=== PATIENT | female | born 1995 | race Caucasian/White ===

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

== ENCOUNTER 2017-11-29 15:47 | Emergency (ER) | payer OTHER ==
[2017-11-29 15:59] VITALS: RESP 18
[2017-11-29 16:38] LABS: Basophils # (A) 0.1 k/uL (0-0.2); Basophils % (A) 1 %; Eosinophils # (A) 0.1 k/uL (0-0.7); Eosinophils % (A) 1 %; HCT 45.3 % (34.0-46.0); HGB 15.1 gm/dL (11.4-16.0); Lymphocytes # (A) 3.1 k/uL (1.0-4.8); Lymphocytes % (A) 23 %; MCHC 33.2 g/dL (31.0-37.0); MCV 87.2 fL (80.0-100.0); Mean Platelet Volume 6.4; Monocytes # (A) 0.6 k/uL (0-1.0); Monocytes % (A) 4 %; Neutrophils # (A) 9.5 k/uL (1.3-7.7); Neutrophils % (A) 70 %; Platelet Count 336 k/uL (150-450); RDW 12.9 % (11.5-15.5); WBC 13.6 k/uL (4.0-11.0)
[2017-11-29 16:41] LABS: Appearance,Urine Cloudy (Clear); Bacteria,Urine Rare /hpf; Bilirubin,Urine Negative (Negative); Blood,Urine Negative (Negative); Color,Urine Yellow; Glucose,Urine (UA) Negative (Negative); Ketones,Urine Negative (Negative); Leukocyte Esterase,Urine Negative (Negative); Mucus,Urine Few /hpf; Nitrite,Urine Negative (Negative); PH, Urine 7.5 (5.0-8.0); Protein,Urine Trace (Negative); RBC,Urine 1 /hpf (0-5); Specific Gravity,Urine 1.018 (1.001-1.035); Squamous Epithelial Cell,Urine 17 /hpf (0-4); WBC,Urine 4 /hpf (0-5)
--- NOTE | 2017-11-29 16:59 | ED ---
Abdominal Pain HPI - General Chief Complaint: Abdominal Pain Stated Complaint: positive preg test, cramping Time Seen by Provider: 11/29/17 16:16 Source: patient, RN notes reviewed Mode of arrival: ambulatory Limitations: no limitations - History of Present Illness Initial Comments: This a 22-year-old female presents emergency Department chief complaint of lower abdominal pain. Patient states that she feels that she's having cramping. Patient received that she is . She is A0 has not contacted a [facility] at this time. She denies any vaginal bleeding or vaginal discharge. Patient has no acute urinary frequency, dysuria no notable hematuria. Patient states she's had some nausea no vomiting no diarrhea no constipation. Patient does not take any current medications. - Related Data Home Medications Medication Instructions Recorded Confirmed Ibuprofen [Motrin] 600 mg PO Q6HR PRN 02/12/17 02/12/17 Allergies Allergy/AdvReac Type Severity Reaction Status Date / Time No Known Allergies Allergy Verified 11/29/17 15:58 Review of Systems ROS Statement: Those systems with pertinent positive or pertinent negative responses have been documented in the HPI. ROS Other: All systems not noted in ROS Statement are negative. Past Medical History Past Medical History: Asthma History of Any Multi-Drug Resistant Organisms: None Reported Past Surgical History: No Surgical Hx Reported Additional Past Surgical History / Comment(s): oral surgery Past Psychological History: No Psychological Hx Reported Smoking Status: Current every day smoker Past Alcohol Use History: None Reported Past Drug Use History: None Reported General Exam Limitations: no limitations General appearance: alert, in no apparent distress Head exam: Present: atraumatic, normocephalic, normal inspection Eye exam: Present: normal appearance, PERRL, EOMI. Absent: scleral icterus, conjunctival injection, periorbital swelling Respiratory exam: Present: normal lung sounds bilaterally. Absent: respiratory distress, wheezes, rales, rhonchi, stridor Cardiovascular Exam: Present: regular rate, normal rhythm, normal heart sounds. Absent: systolic murmur, diastolic murmur, rubs, gallop, clicks GI/Abdominal exam: Present: soft, normal bowel sounds. Absent: distended, tenderness, guarding, rebound, rigid Back exam: Absent: CVA tenderness (R), CVA tenderness (L) Skin exam: Present: warm, dry, intact, normal color. Absent: rash Course Vital Signs 11/29/17 15:56 Temperature 98.8 F Pulse Rate 113 H Respiratory 18 Rate Blood Pressure 134/81 O2 Sat by Pulse 96 Oximetry Medical Decision Making - Medical Decision Making 22-year-old female presented for lower abdominal pain cramping and positive test at home. She is negative hCG at this time. Patient ultrasound showed no acute, grade factors. Patient abdomen is soft and will be discharged at this time. - Lab Data Result diagrams: 11/29/17 16:22 11/29/17 16:22 Lab Results 11/29/17 11/29/17 11/29/17 Range/Units 16:22 16:22 16:22 WBC 13.6 H (4.0-11.0) k/uL RBC 5.20 (3.80-5.40) m/uL Hgb 15.1 (11.4-16.0) gm/dL Hct 45.3 (34.0-46.0) % MCV 87.2 (80.0-100.0) fL MCH 29.0 (25.0-35.0) pg MCHC 33.2 (31.0-37.0) g/dL RDW 12.9 (11.5-15.5) % Plt Count 336 (150-450) k/uL Neutrophils % 70 % Lymphocytes % 23 % Monocytes % 4 % Eosinophils % 1 % Basophils % 1 % Neutrophils # 9.5 H (1.3-7.7) k/uL Lymphocytes # 3.1 (1.0-4.8) k/uL Monocytes # 0.6 (0-1.0) k/uL Eosinophils # 0.1 (0-0.7) k/uL Basophils # 0.1 (0-0.2) k/uL Sodium 141 (137-145) mmol/L Potassium 4.0 (3.5-5.1) mmol/L Chloride 109 H (98-107) mmol/L Carbon Dioxide 21 L (22-30) mmol/L Anion Gap 11 mmol/L BUN 9 (7-17) mg/dL Creatinine 0.56 (0.52-1.04) mg/dL Est GFR (CKD-EPI)AfAm >90 (>60 ml/min/1.73 sqM) Est GFR (CKD-EPI)NonAf >90 (>60 ml/min/1.73 sqM) Glucose 95 (74-99) mg/dL Calcium 9.7 (8.4-10.2) mg/dL Total Bilirubin 0.4 (0.2-1.3) mg/dL AST 18 (14-36) U/L ALT 23 (9-52) U/L Alkaline Phosphatase 77 (38-126) U/L Total Protein 7.6 (6.3-8.2) g/dL Albumin 4.4 (3.5-5.0) g/dL HCG, Quant <2.4 mIU/mL Urine Color Urine Appearance (Clear) Urine pH (5.0-8.0) Ur Specific [place] (1.001-1.035) Urine Protein (Negative) Urine Glucose (UA) (Negative) Urine Ketones (Negative) Urine Blood (Negative) Urine Nitrite (Negative) Urine Bilirubin (Negative) Urine Urobilinogen (<2.0) mg/dL Ur Leukocyte Esterase (Negative) Urine RBC (0-5) /hpf Urine WBC (0-5) /hpf Ur Squamous Epith Cells (0-4) /hpf Urine Bacteria (None) /hpf Urine Mucus (None) /hpf Blood Type B Positive Blood Type Recheck [facility] 11/29/17 Range/Units 16:22 WBC (4.0-11.0) k/uL RBC (3.80-5.40) m/uL Hgb (11.4-16.0) gm/dL Hct (34.0-46.0) % MCV (80.0-100.0) fL MCH (25.0-35.0) pg MCHC (31.0-37.0) g/dL RDW (11.5-15.5) % Plt Count (150-450) k/uL Neutrophils % % Lymphocytes % % Monocytes % % Eosinophils % % Basophils % % Neutrophils # (1.3-7.7) k/uL Lymphocytes # (1.0-4.8) k/uL Monocytes # (0-1.0) k/uL Eosinophils # (0-0.7) k/uL Basophils # (0-0.2) k/uL Sodium (137-145) mmol/L Potassium (3.5-5.1) mmol/L Chloride (98-107) mmol/L Carbon Dioxide (22-30) mmol/L Anion Gap mmol/L BUN (7-17) mg/dL Creatinine (0.52-1.04) mg/dL Est GFR (CKD-EPI)AfAm (>60 ml/min/1.73 sqM) Est GFR (CKD-EPI)NonAf (>60 ml/min/1.73 sqM) Glucose (74-99) mg/dL Calcium (8.4-10.2) mg/dL Total Bilirubin (0.2-1.3) mg/dL AST (14-36) U/L ALT (9-52) U/L Alkaline Phosphatase (38-126) U/L Total Protein (6.3-8.2) g/dL Albumin (3.5-5.0) g/dL HCG, Quant mIU/mL Urine Color Yellow Urine Appearance Cloudy H (Clear) Urine pH 7.5 (5.0-8.0) Ur Specific [place] 1.018 (1.001-1.035) Urine Protein Trace H (Negative) Urine Glucose (UA) Negative (Negative) Urine Ketones Negative (Negative) Urine Blood Negative (Negative) Urine Nitrite Negative (Negative) Urine Bilirubin Negative (Negative) Urine Urobilinogen 2.0 (<2.0) mg/dL Ur Leukocyte Esterase Negative (Negative) Urine RBC 1 (0-5) /hpf Urine WBC 4 (0-5) /hpf Ur Squamous Epith Cells 17 H (0-4) /hpf Urine Bacteria Rare H (None) /hpf Urine Mucus Few H (None) /hpf Blood Type Blood Type Recheck Disposition Clinical Impression: Abdominal pain Disposition: HOME SELF-CARE Condition: Stable Instructions: Abdominal Pain (ED) Additional Instructions: Please return to the Emergency Department if symptoms worsen or any other concerns. Is patient prescribed a controlled substance at d/c from ED?: No Referrals: None,Stated [Primary Care Provider] - 1-2 days Time of Disposition: 17:42
[2017-11-29 17:02] LABS: ALT 23 U/L (9-52); AST 18 U/L (14-36); Albumin 4.4 g/dL (3.5-5.0); Alkaline Phosphatase 77 U/L (38-126); Anion Gap 11 mmol/L; Blood Urea Nitrogen 9 mg/dL (7-17); Calcium 9.7 mg/dL (8.4-10.2); Carbon Dioxide 21 mmol/L (22-30); Chloride 109 mmol/L (98-107); Glucose 95 mg/dL (74-99); Sodium 141 mmol/L (137-145); Total Bilirubin 0.4 mg/dL (0.2-1.3); Total Protein 7.6 g/dL (6.3-8.2)
--- NOTE | 2017-11-29 17:07 | US ---
EXAMINATION TYPE: Transabdominal DATE OF EXAM: 06/06/17 COMPARISON: NONE CLINICAL HISTORY: Pain. + home preg test, intermittent cramping x 2 days, 1 EXAM PERFORMED: Transvaginal (TV) and Transabdominal (TA) EXAM MEASUREMENTS: GESTATIONAL AGE / DATING Physician Established: Not established yet Dates by LMP: (3 weeks/4 days) EDC: 08/11/2018 Dates by First Scan: This is 1st scan Dates by Current Scan for: No IUP seen at this time MATERNAL ANATOMY Uterus: 6.7 x 2.9 x 3.8cm Right Ovary: 3.4 x 2.3 x 2.8cm Left Ovary: 2.6 x 1.5 x 2.1cm Post CDS / Adnexa: small amount of free fluid seen in posterior cul de sac Presence of free fluid: yes Presence of corpus luteal cyst: not seen Presence of subchorionic bleed: no GESTATION / SURVEY IUP: No IUP seen at this time Date of LMP: 11/04/2017 Beta HcG (if available): Not available at time of exam. IMPRESSION: The uterus is empty. No adnexal mass. Tiny amount of free fluid in the cul-de-sac.
[2017-11-29 17:17] LABS: HCG,Quantitative Serum <2.4 mIU/mL
[2017-11-29 17:50] VITALS: BP 120/82; PULSE 74; TEMP 98
== END 2017-11-29 17:50 | disposition home or self-care (01) ==
LOC: EC 15:47
DX: R10.30 Lower abdominal pain, unspecified (principal); F17.200 Nicotine dependence, unspecified, uncomplicated
CPT/HCPCS: 36415; 76801; 76817; 80053; 81001; 84702; 85025; 86900; 86901; 99284

== ENCOUNTER 2018-03-21 22:39 | Emergency (ER) | payer OTHER ==
[2018-03-21 23:32] VITALS: RESP 16
[2018-03-21] MEDS ORDERED: SODIUM CHLORIDE 0.9% 1,000 ML IV STA (23:39)
[2018-03-21] MEDS ORDERED: ACETAMINOPHEN TAB 500 MG TAB PO STA (23:39)
[2018-03-21 23:50] LABS: Appearance,Urine Clear (Clear); Basophils # (A) 0.1 k/uL (0-0.2); Basophils % (A) 1 %; Bilirubin,Urine Negative (Negative); Blood,Urine Negative (Negative); Color,Urine Yellow; Eosinophils # (A) 0.2 k/uL (0-0.7); Eosinophils % (A) 2 %; Glucose,Urine (UA) Negative (Negative); HCT 40.5 % (34.0-46.0); HGB 13.3 gm/dL (11.4-16.0); Ketones,Urine Negative (Negative); Leukocyte Esterase,Urine Negative (Negative); Lymphocytes # (A) 3.2 k/uL (1.0-4.8); Lymphocytes % (A) 21 %; MCH 28.3 pg (25.0-35.0); MCHC 32.9 g/dL (31.0-37.0); MCV 85.8 fL (80.0-100.0); Mean Platelet Volume 6.3; Monocytes # (A) 0.5 k/uL (0-1.0); Monocytes % (A) 4 %; Neutrophils # (A) 10.7 k/uL (1.3-7.7); Neutrophils % (A) 72 %; Nitrite,Urine Negative (Negative); Platelet Count 336 k/uL (150-450); Protein,Urine Negative (Negative); RBC 4.71 m/uL (3.80-5.40); RDW 12.5 % (11.5-15.5); Specific Gravity,Urine 1.015 (1.001-1.035); WBC 14.8 k/uL (4.0-11.0)
[2018-03-21 23:58] LABS: ALT 40 U/L (9-52); AST 24 U/L (14-36); Albumin 4.5 g/dL (3.5-5.0); Alkaline Phosphatase 67 U/L (38-126); Amylase 53 U/L (30-110); Anion Gap 10 mmol/L; Blood Urea Nitrogen 8 mg/dL (7-17); Calcium 9.5 mg/dL (8.4-10.2); Carbon Dioxide 20 mmol/L (22-30); Chloride 107 mmol/L (98-107); Glucose 94 mg/dL (74-99); Lipase 55 U/L (23-300); Potassium 3.8 mmol/L (3.5-5.1); Sodium 137 mmol/L (137-145); Total Bilirubin 0.5 mg/dL (0.2-1.3); Total Protein 7.6 g/dL (6.3-8.2)
--- NOTE | 2018-03-22 00:41 | US ---
EXAMINATION TYPE: Transabdominal DATE OF EXAM: 06/06/17 COMPARISON: NONE CLINICAL HISTORY: Pain. Pain EXAM PERFORMED: Transvaginal (TV) and Transabdominal (TA) EXAM MEASUREMENTS: GESTATIONAL AGE / DATING Physician Established: Not yet established Dates by LMP: (6 weeks/6 days) EDC: 11/09/2018 Dates by First Scan: No previous this is first scan Dates by Current Scan for: (6 weeks/3 days) EDC: 11/12/2018 MATERNAL ANATOMY Uterus: 8.3 x 5.0 x 5.1 cm Right Ovary: 2.4 x 2.0 x 1.9 cm Left Ovary: Obscured by bowel gas. Post CDS / Adnexa: wnl Presence of free fluid: no Presence of corpus luteal cyst: no Presence of subchorionic bleed: no GESTATION / SURVEY CRL: 0.6 cm (6 weeks/3 days) Yolk Sac (normal less than 6mm): 2mm Heart Rate: 150 bpm Rhythm: Normal IUP: Viable IUP Beta HcG (if available): Not available at this time Viable IUP 6w3d EDD11/12/2018 HR 150 BPM IMPRESSION: The ultrasound gestational age is 6 weeks and 3 days. No complicating process seen. Single living intrauterine fetus.
--- NOTE | 2018-03-22 01:38 | ED ---
Abdominal Pain HPI - General Chief Complaint: Abdominal Pain Stated Complaint: Cramping, discharge Time Seen by Provider: 03/21/18 23:06 Source: patient Mode of arrival: ambulatory Limitations: no limitations - History of Present Illness Initial Comments: 22-year-old female patient presents to the emergency department today for evaluation of suprapubic abdominal cramping, bilateral rib pain, and vaginal discharge. Patient states that she is she is not sure how many weeks. States her last period was January 14. She is . Patient states that over the last 3-4 days she has been having intermittent suprapubic cramping and intermittent sharp pains to her bilateral rib/upper abdomen region. She states she has been quite nauseated, did have an episode of vomiting 2 days ago. She denies any fevers or chills. Denies any hematuria, dysuria, urinary frequency, urinary urgency. States that she has established care with Dr. Chino and has her first appointment on the of this month. States that this morning she did have a small amount of brown vaginal discharge, this has resolved. She denies any increased bleeding. Denies any concern for sexually transmitted infections. Patient denies any recent rash, shortness breath, chest pain, diarrhea, constipation, back pain, numbness, tingling, dizziness, weakness, headache, visual changes, or any other complaints. - Related Data Previous Rx's Medication Instructions Recorded Pyridoxine [Vitamin B-6] 25 mg PO HS #15 tablet 03/22/18 Allergies Allergy/AdvReac Type Severity Reaction Status Date / Time No Known Allergies Allergy Verified 03/21/18 23:07 Review of Systems ROS Statement: Those systems with pertinent positive or pertinent negative responses have been documented in the HPI. ROS Other: All systems not noted in ROS Statement are negative. Past Medical History Past Medical History: Asthma History of Any Multi-Drug Resistant Organisms: None Reported Past Surgical History: No Surgical Hx Reported Additional Past Surgical History / Comment(s): oral surgery Past Psychological History: No Psychological Hx Reported Smoking Status: Current every day smoker Past Alcohol Use History: None Reported Past Drug Use History: None Reported General Exam Limitations: no limitations General appearance: alert, in no apparent distress, other (This is a well- developed, well-nourished adult female patient in no acute distress. Vital signs upon presentation are temperature 98.2F, pulse 88, respirations 20, blood pressure 122/74, pulse ox 98% on room air.) Eye exam: Present: normal appearance, PERRL, EOMI. Absent: scleral icterus, conjunctival injection, periorbital swelling ENT exam: Present: normal exam, normal oropharynx, mucous membranes moist Respiratory exam: Present: normal lung sounds bilaterally. Absent: respiratory distress, wheezes, rales, rhonchi, stridor Cardiovascular Exam: Present: regular rate, normal rhythm, normal heart sounds. Absent: systolic murmur, diastolic murmur, rubs, gallop, clicks GI/Abdominal exam: Present: soft, normal bowel sounds. Absent: distended, tenderness, guarding, rebound, rigid Back exam: Present: normal inspection. Absent: CVA tenderness (R), CVA tenderness (L) Neurological exam: Present: alert, oriented X3, CN II-XII intact Psychiatric exam: Present: normal affect, normal mood Skin exam: Present: warm, dry, intact, normal color. Absent: rash Course Vital Signs 03/21/18 03/21/18 03/22/18 22:59 23:31 01:56 Temperature 98.2 F 98.4 F 97.7 F Pulse Rate 88 89 82 Respiratory 20 16 16 Rate Blood Pressure 122/74 120/71 125/66 O2 Sat by Pulse 98 100 100 Oximetry Medical Decision Making - Medical Decision Making 22-year-old female patient presents to the emergency department today for evaluation of suprapubic cramping and bilateral rib pain. Patient is 6 weeks confirmed by ultrasound, which shows a single intrauterine . Patient did report a small amount of brown vaginal discharge this morning. Denies any concern for STDs. Labs reviewed and did reveal an hCG of 30,000. Patient is B positive for ABO/Rh. Urinalysis negative for infection. Patient was given IV fluids here in the department. She does report nausea was given a prescription for vitamin B6. She was discharged home at this time to follow-up with [facility] for recheck as soon as possible. Return parameters discussed in detail. She verbalizes understanding and agrees with this plan. - Lab Data Result diagrams: 03/21/18 23:39 03/21/18 23:39 Lab Results 03/21/18 03/21/18 03/21/18 Range/Units 23:39 23:39 23:39 WBC 14.8 H (4.0-11.0) k/uL RBC 4.71 (3.80-5.40) m/uL Hgb 13.3 (11.4-16.0) gm/dL Hct 40.5 (34.0-46.0) % MCV 85.8 (80.0-100.0) fL MCH 28.3 (25.0-35.0) pg MCHC 32.9 (31.0-37.0) g/dL RDW 12.5 (11.5-15.5) % Plt Count 336 (150-450) k/uL Neutrophils % 72 % Lymphocytes % 21 % Monocytes % 4 % Eosinophils % 2 % Basophils % 1 % Neutrophils # 10.7 H (1.3-7.7) k/uL Lymphocytes # 3.2 (1.0-4.8) k/uL Monocytes # 0.5 (0-1.0) k/uL Eosinophils # 0.2 (0-0.7) k/uL Basophils # 0.1 (0-0.2) k/uL Sodium 137 (137-145) mmol/L Potassium 3.8 (3.5-5.1) mmol/L Chloride 107 (98-107) mmol/L Carbon Dioxide 20 L (22-30) mmol/L Anion Gap 10 mmol/L BUN 8 (7-17) mg/dL Creatinine 0.49 L (0.52-1.04) mg/dL Est GFR (CKD-EPI)AfAm >90 (>60 ml/min/1.73 sqM) Est GFR (CKD-EPI)NonAf >90 (>60 ml/min/1.73 sqM) Glucose 94 (74-99) mg/dL Calcium 9.5 (8.4-10.2) mg/dL Total Bilirubin 0.5 (0.2-1.3) mg/dL AST 24 (14-36) U/L ALT 40 (9-52) U/L Alkaline Phosphatase 67 (38-126) U/L Total Protein 7.6 (6.3-8.2) g/dL Albumin 4.5 (3.5-5.0) g/dL Amylase 53 (30-110) U/L Lipase 55 (23-300) U/L HCG, Quant 14133.0 mIU/mL Urine Color Urine Appearance (Clear) Urine pH (5.0-8.0) Ur Specific [place] (1.001-1.035) Urine Protein (Negative) Urine Glucose (UA) (Negative) Urine Ketones (Negative) Urine Blood (Negative) Urine Nitrite (Negative) Urine Bilirubin (Negative) Urine Urobilinogen (<2.0) mg/dL Ur Leukocyte Esterase (Negative) Blood Type B Positive Blood Type Recheck No 03/21/18 Range/Units 23:39 WBC (4.0-11.0) k/uL RBC (3.80-5.40) m/uL Hgb (11.4-16.0) gm/dL Hct (34.0-46.0) % MCV (80.0-100.0) fL MCH (25.0-35.0) pg MCHC (31.0-37.0) g/dL RDW (11.5-15.5) % Plt Count (150-450) k/uL Neutrophils % % Lymphocytes % % Monocytes % % Eosinophils % % Basophils % % Neutrophils # (1.3-7.7) k/uL Lymphocytes # (1.0-4.8) k/uL Monocytes # (0-1.0) k/uL Eosinophils # (0-0.7) k/uL Basophils # (0-0.2) k/uL Sodium (137-145) mmol/L Potassium (3.5-5.1) mmol/L Chloride (98-107) mmol/L Carbon Dioxide (22-30) mmol/L Anion Gap mmol/L BUN (7-17) mg/dL Creatinine (0.52-1.04) mg/dL Est GFR (CKD-EPI)AfAm (>60 ml/min/1.73 sqM) Est GFR (CKD-EPI)NonAf (>60 ml/min/1.73 sqM) Glucose (74-99) mg/dL Calcium (8.4-10.2) mg/dL Total Bilirubin (0.2-1.3) mg/dL AST (14-36) U/L ALT (9-52) U/L Alkaline Phosphatase (38-126) U/L Total Protein (6.3-8.2) g/dL Albumin (3.5-5.0) g/dL Amylase (30-110) U/L Lipase (23-300) U/L HCG, Quant mIU/mL Urine Color Yellow Urine Appearance Clear (Clear) Urine pH 6.0 (5.0-8.0) Ur Specific [place] 1.015 (1.001-1.035) Urine Protein Negative (Negative) Urine Glucose (UA) Negative (Negative) Urine Ketones Negative (Negative) Urine Blood Negative (Negative) Urine Nitrite Negative (Negative) Urine Bilirubin Negative (Negative) Urine Urobilinogen 4.0 (<2.0) mg/dL Ur Leukocyte Esterase Negative (Negative) Blood Type Blood Type Recheck - Radiology Data Radiology results: report reviewed Patient denies any recent rash, fever, chills, shortness breath, chest pain, abdominal pain, nausea, vomiting, diarrhea, constipation, back pain, numbness, tingling, dizziness, weakness, hematuria, dysuria, urinary urgency, urinary frequency, headache, visual changes, or any other complaints. Disposition Clinical Impression: Abdominal pain during Disposition: HOME SELF-CARE Condition: Good Instructions: Abdominal Pain in (ED) Additional Instructions: Increase fluids. Take tylenol for pain control. Try the vitamin B6 for nausea. Follow up with OBGYN for recheck as soon as possible. Return immediately for any new, worsening, or concerning symptoms. Prescriptions: Pyridoxine [Vitamin B-6] 25 mg PO HS #15 tablet Is patient prescribed a controlled substance at d/c from ED?: No Referrals: None,Stated [Primary Care Provider] - 1-2 days Time of Disposition: 01:38
[2018-03-22 01:57] VITALS: BP 125/66; PULSE 82; TEMP 97.7
== END 2018-03-22 01:56 | disposition home or self-care (01) ==
LOC: EC 22:39
DX: O99.89 Other specified diseases and conditions complicating pregnancy, childbirth and the puerperium (principal); R10.30 Lower abdominal pain, unspecified; R11.0 Nausea; N89.8 Other specified noninflammatory disorders of vagina; R07.81 Pleurodynia; O99.331 Smoking (tobacco) complicating pregnancy, first trimester; F17.200 Nicotine dependence, unspecified, uncomplicated; Z3A.01 Less than 8 weeks gestation of pregnancy
CPT/HCPCS: 36415; 76801; 76817; 80053; 81003; 82150; 83690; 84702; 85025; 86900; 86901; 96360; 99284

== ENCOUNTER 2018-04-16 18:34 | Emergency (ER) | payer OTHER ==
[2018-04-16 19:00] VITALS: BP 136/81; PULSE 110; RESP 18; TEMP 99.2
[2018-04-16 19:43] LABS: Basophils # (A) 0.1 k/uL (0-0.2); Basophils % (A) 0 %; Eosinophils # (A) 0.1 k/uL (0-0.7); Eosinophils % (A) 1 %; HCT 39.8 % (34.0-46.0); HGB 13.6 gm/dL (11.4-16.0); Lymphocytes # (A) 2.4 k/uL (1.0-4.8); Lymphocytes % (A) 15 %; MCH 28.9 pg (25.0-35.0); MCHC 34.2 g/dL (31.0-37.0); MCV 84.6 fL (80.0-100.0); Mean Platelet Volume 6.4; Monocytes # (A) 0.5 k/uL (0-1.0); Monocytes % (A) 3 %; Neutrophils # (A) 13.3 k/uL (1.3-7.7); Neutrophils % (A) 80 %; Platelet Count 330 k/uL (150-450); RBC 4.71 m/uL (3.80-5.40); RDW 12.4 % (11.5-15.5); WBC 16.6 k/uL (4.0-11.0)
[2018-04-16 19:52] LABS: ALT 38 U/L (9-52); AST 32 U/L (14-36); Albumin 4.5 g/dL (3.5-5.0); Alkaline Phosphatase 78 U/L (38-126); Amylase 48 U/L (30-110); Anion Gap 12 mmol/L; Blood Urea Nitrogen 5 mg/dL (7-17); Calcium 9.6 mg/dL (8.4-10.2); Carbon Dioxide 21 mmol/L (22-30); Chloride 106 mmol/L (98-107); Glucose 92 mg/dL (74-99); Lipase 83 U/L (23-300); Potassium 3.5 mmol/L (3.5-5.1); Sodium 139 mmol/L (137-145); Total Bilirubin 0.6 mg/dL (0.2-1.3); Total Protein 7.5 g/dL (6.3-8.2)
[2018-04-16 21:21] LABS: Appearance,Urine Cloudy (Clear); Bacteria,Urine Rare /hpf; Bilirubin,Urine Negative (Negative); Blood,Urine Negative (Negative); Color,Urine Yellow; Glucose,Urine (UA) Negative (Negative); Ketones,Urine 4+ (Negative); Leukocyte Esterase,Urine Trace (Negative); Mucus,Urine Many /hpf; Nitrite,Urine Negative (Negative); PH, Urine 6.5 (5.0-8.0); Protein,Urine Negative (Negative); RBC,Urine 1 /hpf (0-5); Specific Gravity,Urine 1.008 (1.001-1.035); Squamous Epithelial Cell,Urine 15 /hpf (0-4); WBC,Urine 6 /hpf (0-5)
--- NOTE | 2018-04-17 02:51 | ED ---
Abdominal Pain HPI - General Chief Complaint: Abdominal Pain Stated Complaint: 10wks preg, cramping Time Seen by Provider: 04/16/18 20:34 Source: patient Mode of arrival: ambulatory Limitations: no limitations - History of Present Illness Initial Comments: 22-year-old female patient came in with a reported complaint of abdominal cramping at 10 weeks of . When I went in to see the patient she did not want to be evaluated or wait any longer so she refused to proceed with history and physical exam. No information was obtained. - Related Data Home Medications Medication Instructions Recorded Confirmed Htj-[id number]-Ibvga Acid 1 cap PO HS 04/16/18 04/16/18 [-U Capsule (formulary)] Allergies Allergy/AdvReac Type Severity Reaction Status Date / Time No Known Allergies Allergy Verified 04/16/18 22:01 Review of Systems ROS Statement: Those systems with pertinent positive or pertinent negative responses have been documented in the HPI. ROS Other: All systems not noted in ROS Statement are negative. Past Medical History Past Medical History: Asthma History of Any Multi-Drug Resistant Organisms: None Reported Past Surgical History: No Surgical Hx Reported Additional Past Surgical History / Comment(s): oral surgery Past Psychological History: No Psychological Hx Reported Smoking Status: Current every day smoker Past Alcohol Use History: None Reported Past Drug Use History: None Reported General Exam Limitations: no limitations Course Vital Signs 04/16/18 18:58 Temperature 99.2 F Pulse Rate 110 H Respiratory 18 Rate Blood Pressure 136/81 O2 Sat by Pulse 98 Oximetry Medical Decision Making - Medical Decision Making 22-year-old female patient came in with reported complaint of abdominal cramping and . Upon my arrival to the room patient refused to be seen or evaluated. I was unable to perform history or physical exam. I was not able to discuss lab results with the patient. She did sign an AGAINST MEDICAL ADVICE form. She reports she will follow-up with her doctor tomorrow. - Lab Data Result diagrams: 04/16/18 19:15 04/16/18 19:15 Lab Results 04/16/18 04/16/18 04/16/18 Range/Units 19:15 19:15 20:54 WBC 16.6 H (4.0-11.0) k/uL RBC 4.71 (3.80-5.40) m/uL Hgb 13.6 (11.4-16.0) gm/dL Hct 39.8 (34.0-46.0) % MCV 84.6 (80.0-100.0) fL MCH 28.9 (25.0-35.0) pg MCHC 34.2 (31.0-37.0) g/dL RDW 12.4 (11.5-15.5) % Plt Count 330 (150-450) k/uL Neutrophils % 80 % Lymphocytes % 15 % Monocytes % 3 % Eosinophils % 1 % Basophils % 0 % Neutrophils # 13.3 H (1.3-7.7) k/uL Lymphocytes # 2.4 (1.0-4.8) k/uL Monocytes # 0.5 (0-1.0) k/uL Eosinophils # 0.1 (0-0.7) k/uL Basophils # 0.1 (0-0.2) k/uL Sodium 139 (137-145) mmol/L Potassium 3.5 (3.5-5.1) mmol/L Chloride 106 (98-107) mmol/L Carbon Dioxide 21 L (22-30) mmol/L Anion Gap 12 mmol/L BUN 5 L (7-17) mg/dL Creatinine 0.47 L (0.52-1.04) mg/dL Est GFR (CKD-EPI)AfAm >90 (>60 ml/min/1.73 sqM) Est GFR (CKD-EPI)NonAf >90 (>60 ml/min/1.73 sqM) Glucose 92 (74-99) mg/dL Calcium 9.6 (8.4-10.2) mg/dL Total Bilirubin 0.6 (0.2-1.3) mg/dL AST 32 (14-36) U/L ALT 38 (9-52) U/L Alkaline Phosphatase 78 (38-126) U/L Total Protein 7.5 (6.3-8.2) g/dL Albumin 4.5 (3.5-5.0) g/dL Amylase 48 (30-110) U/L Lipase 83 (23-300) U/L Urine Color Yellow Urine Appearance Cloudy H (Clear) Urine pH 6.5 (5.0-8.0) Ur Specific [place] 1.008 (1.001-1.035) Urine Protein Negative (Negative) Urine Glucose (UA) Negative (Negative) Urine Ketones 4+ H (Negative) Urine Blood Negative (Negative) Urine Nitrite Negative (Negative) Urine Bilirubin Negative (Negative) Urine Urobilinogen 6.0 (<2.0) mg/dL Ur Leukocyte Esterase Trace H (Negative) Urine RBC 1 (0-5) /hpf Urine WBC 6 H (0-5) /hpf Ur Squamous Epith Cells 15 H (0-4) /hpf Urine Bacteria Rare H (None) /hpf Urine Mucus Many H (None) /hpf Disposition Clinical Impression: Abdominal cramping Disposition: Left Against Medical Advice Condition: Undetermined Referrals: None,Stated [Primary Care Provider] - 1-2 days
== END 2018-04-16 22:11 | disposition left against medical advice (07) ==
LOC: EC 18:34
DX: O99.89 Other specified diseases and conditions complicating pregnancy, childbirth and the puerperium (principal); R10.32 Left lower quadrant pain; O99.331 Smoking (tobacco) complicating pregnancy, first trimester; F17.200 Nicotine dependence, unspecified, uncomplicated; Z53.29 Procedure and treatment not carried out because of patient's decision for other reasons; Z3A.10 10 weeks gestation of pregnancy
CPT/HCPCS: 36415; 80053; 81001; 82150; 83690; 85025; 99284

== ENCOUNTER 2018-10-16 23:25 | Emergency (ER) | payer OTHER ==
[2018-10-16 23:38] VITALS: RESP 18
[2018-10-16] MEDS ORDERED: SODIUM CHLORIDE 0.9% 1,000 ML IV STA (23:51)
[2018-10-16] MEDS ORDERED: ACETAMINOPHEN TAB 500 MG TAB PO STA (23:56)
[2018-10-17 00:17] LABS: Anisocytosis Slight; Basophils # (A) 0.1 k/uL (0-0.2); Basophils % (A) 1 %; Eosinophils # (A) 0.3 k/uL (0-0.7); Eosinophils % (A) 2 %; HCT 37.9 % (34.0-46.0); Lymphocytes # (A) 4.3 k/uL (1.0-4.8); Lymphocytes % (A) 29 %; MCH 29.2 pg (25.0-35.0); MCHC 34.2 g/dL (31.0-37.0); MCV 85.5 fL (80.0-100.0); Monocytes # (A) 0.6 k/uL (0-1.0); Monocytes % (A) 4 %; Neutrophils # (A) 9.6 k/uL (1.3-7.7); Neutrophils % (A) 64 %; Platelet Count 327 k/uL (150-450); RBC 4.44 m/uL (3.80-5.40); RDW 16.1 % (11.5-15.5)
[2018-10-17 00:22] LABS: Appearance,Urine Clear (Clear); Bilirubin,Urine Negative (Negative); Blood,Urine Negative (Negative); Color,Urine Colorless; Glucose,Urine (UA) Negative (Negative); Ketones,Urine Negative (Negative); Leukocyte Esterase,Urine Negative (Negative); Nitrite,Urine Negative (Negative); Protein,Urine Negative (Negative); Specific Gravity,Urine 1.003 (1.001-1.035); Urobilinogen,Urine <2.0 mg/dL (<2.0)
[2018-10-17 00:38] LABS: ALT 12 U/L (9-52); AST 13 U/L (14-36); African American GFR (CKD) >90 (>60 ml/min/1.73 sqM); Alkaline Phosphatase 63 U/L (38-126); Amylase 46 U/L (30-110); Anion Gap 10 mmol/L; Blood Urea Nitrogen 8 mg/dL (7-17); Calcium 9.5 mg/dL (8.4-10.2); Carbon Dioxide 23 mmol/L (22-30); Chloride 105 mmol/L (98-107); Glucose 90 mg/dL (74-99); Potassium 3.7 mmol/L (3.5-5.1); Sodium 138 mmol/L (137-145); Total Bilirubin 0.2 mg/dL (0.2-1.3)
[2018-10-17 00:55] LABS: HCG,Quantitative Serum 8021.9 mIU/mL
--- NOTE | 2018-10-17 01:51 | ED ---
Abdominal Pain HPI - General Chief Complaint: Abdominal Pain Stated Complaint: Early /Cramping Time Seen by Provider: 10/16/18 23:43 Source: patient Mode of arrival: ambulatory Limitations: no limitations - History of Present Illness Initial Comments: 22-year-old female patient presents to the emergency department today for evaluation of suprapubic abdominal cramping. Patient states that she found out she is one week ago. States that she has had some abdominal cramping with this , was seen by her primary care physician and was told her hCG levels were rising too rapidly and if she experiencing any further abdominal pain to present for evaluation to the nearest emergency Department. Patient states that she had increase in abdominal pain today. Patient states the pain radiates along her lower abdomen into both hips and into her back. She denies any abnormal vaginal bleeding or discharge. Denies any hematuria, dysuria, urinary frequency, urinary urgency. Patient is with one elective . She denies any fever or chills. Patient denies any recent rash, shortness breath, chest pain, abdominal pain, nausea, vomiting, diarrhea, constipation, back pain, numbness, tingling, dizziness, weakness, headache, visual changes, or any other complaints. - Related Data Home Medications Medication Instructions Recorded Confirmed Pqn-Owtc-Krgws Acid 1 cap PO HS 04/16/18 04/16/18 [-U Capsule (formulary)] Allergies Allergy/AdvReac Type Severity Reaction Status Date / Time No Known Allergies Allergy Verified 10/16/18 23:38 Review of Systems ROS Statement: Those systems with pertinent positive or pertinent negative responses have been documented in the HPI. ROS Other: All systems not noted in ROS Statement are negative. Past Medical History Past Medical History: Asthma History of Any Multi-Drug Resistant Organisms: None Reported Past Surgical History: No Surgical Hx Reported Additional Past Surgical History / Comment(s): oral surgery Past Psychological History: No Psychological Hx Reported Smoking Status: Current every day smoker Past Alcohol Use History: None Reported Past Drug Use History: None Reported General Exam Limitations: no limitations General appearance: alert, in no apparent distress, other (Physical well- developed, well-nourished adult female patient in no acute distress. Vital signs upon presentation are temperature 99.2F, pulse 102, respirations 18, blood pressure 132/72, pulse ox 100% on room air.) Respiratory exam: Present: normal lung sounds bilaterally. Absent: respiratory distress, wheezes, rales, rhonchi, stridor Cardiovascular Exam: Present: regular rate, normal rhythm, normal heart sounds. Absent: systolic murmur, diastolic murmur, rubs, gallop, clicks GI/Abdominal exam: Present: soft, normal bowel sounds. Absent: distended, tenderness, guarding, rebound, rigid Neurological exam: Present: alert, oriented X3, CN II-XII intact Psychiatric exam: Present: normal affect, normal mood Skin exam: Present: warm, dry, intact, normal color. Absent: rash Course Vital Signs 10/16/18 23:33 Temperature 99.2 F Pulse Rate 102 H Respiratory 18 Rate Blood Pressure 132/72 O2 Sat by Pulse 100 Oximetry Medical Decision Making - Medical Decision Making 22-year-old female patient presents to the emergency department today for evaluation of suprapubic abdominal cramping radiating to both hips into her back. Physical examination did reveal some mild suprapubic abdominal tenderness. Labs reviewed and did reveal white blood cell count of 15. HCG level was 8021. Patient is not having any vaginal bleeding or discharge at this time. Ultrasound shows probable intrauterine gestational sac. No evidence for ectopic currently. Review of records indicates patient's ABO/Rh is B+. She'll be discharged home to follow-up with [facility] for recheck as soon as possible. Return parameters were discussed in detail. She verbalizes understanding and agrees with this plan. - Lab Data Result diagrams: 10/17/18 00:06 10/17/18 00:06 Lab Results 10/16/18 10/17/18 10/17/18 Range/Units 23:39 00:06 00:06 WBC 15.0 H (4.0-11.0) k/uL RBC 4.44 (3.80-5.40) m/uL Hgb 13.0 (11.4-16.0) gm/dL Hct 37.9 (34.0-46.0) % MCV 85.5 (80.0-100.0) fL MCH 29.2 (25.0-35.0) pg MCHC 34.2 (31.0-37.0) g/dL RDW 16.1 H (11.5-15.5) % Plt Count 327 (150-450) k/uL Neutrophils % 64 % Lymphocytes % 29 % Monocytes % 4 % Eosinophils % 2 % Basophils % 1 % Neutrophils # 9.6 H (1.3-7.7) k/uL Lymphocytes # 4.3 (1.0-4.8) k/uL Monocytes # 0.6 (0-1.0) k/uL Eosinophils # 0.3 (0-0.7) k/uL Basophils # 0.1 (0-0.2) k/uL Anisocytosis Slight Sodium 138 (137-145) mmol/L Potassium 3.7 (3.5-5.1) mmol/L Chloride 105 (98-107) mmol/L Carbon Dioxide 23 (22-30) mmol/L Anion Gap 10 mmol/L BUN 8 (7-17) mg/dL Creatinine 0.49 L (0.52-1.04) mg/dL Est GFR (CKD-EPI)AfAm >90 (>60 ml/min/1.73 sqM) Est GFR (CKD-EPI)NonAf >90 (>60 ml/min/1.73 sqM) Glucose 90 (74-99) mg/dL Calcium 9.5 (8.4-10.2) mg/dL Total Bilirubin 0.2 (0.2-1.3) mg/dL AST 13 L (14-36) U/L ALT 12 (9-52) U/L Alkaline Phosphatase 63 (38-126) U/L Total Protein 7.0 (6.3-8.2) g/dL Albumin 4.0 (3.5-5.0) g/dL Amylase 46 (30-110) U/L Lipase 65 (23-300) U/L HCG, Quant 8021.9 mIU/mL Urine Color Colorless Urine Appearance Clear (Clear) Urine pH 7.0 (5.0-8.0) Ur Specific [place] 1.003 (1.001-1.035) Urine Protein Negative (Negative) Urine Glucose (UA) Negative (Negative) Urine Ketones Negative (Negative) Urine Blood Negative (Negative) Urine Nitrite Negative (Negative) Urine Bilirubin Negative (Negative) Urine Urobilinogen <2.0 (<2.0) mg/dL Ur Leukocyte Esterase Negative (Negative) - Radiology Data Radiology results: report reviewed Transvaginal ultrasound was obtained. Report was reviewed in its entirety. Impression by Dr. Mims shows likely gestational sac with underlying sac. No pole is identified at this time. Continue serial follow-up. Disposition Clinical Impression: Abdominal pain during Disposition: HOME SELF-CARE Condition: Good Instructions (If sedation given, give patient instructions): (ED), Abdominal Pain in (ED) Additional Instructions: Increase fluids. Take vitamins as directed. Follow-up with [facility] for recheck as soon as possible. Return to the emergency department immediately for any new, worsening, or concerning symptoms. Is patient prescribed a controlled substance at d/c from ED?: No Referrals: None,Stated [Primary Care Provider] - 1-2 days Janette Watkins MD [STAFF PHYSICIAN] - 1-2 days Time of Disposition: 02:16
--- NOTE | 2018-10-17 01:51 | US ---
EXAM: US Pelvis, Transvaginal CLINICAL HISTORY: ITS.REASON US Reason: Pain TECHNIQUE: Real-time transvaginal pelvic ultrasound (complete) with image documentation. Transvaginal imaging was used for better evaluation of the endometrium and adnexa. COMPARISON: No relevant prior studies available. FINDINGS: Uterus/cervix: Uterus measures up to 8.5 cm. Cystic structure is seen, possibly the gestational sac measuring 9.1 mm. Yolk sac is seen. No pole is identified at this time. Normal endometrial stripe thickness. No myometrial mass. Right ovary: 3.6 cm. Underlying cord for scoliosis. No mass. Normal blood flow. Left ovary: Not visualized. No mass. Free fluid: Trace free fluid. IMPRESSION: Likely gestational sac with underlying yolk sac is seen. No pole is identified at this time. Continue serial follow-up.
[2018-10-17 02:27] VITALS: BP 131/71; PULSE 80; TEMP 98.2
== END 2018-10-17 02:27 | disposition home or self-care (01) ==
LOC: EC 23:25
DX: O26.899 Other specified pregnancy related conditions, unspecified trimester (principal); O99.330 Smoking (tobacco) complicating pregnancy, unspecified trimester; F17.200 Nicotine dependence, unspecified, uncomplicated; Z3A.00 Weeks of gestation of pregnancy not specified
CPT/HCPCS: 36415; 76801; 76817; 80053; 81003; 82150; 83690; 84702; 85025; 96360; 99284

== ENCOUNTER → 2018-11-07 | Outpatient (CLI) | payer OTHER ==
--- NOTE | 2018-11-07 13:19 | US ---
EXAMINATION TYPE: Transabdominal DATE OF EXAM: 11/07/2018 1:00 PM COMPARISON: US CLINICAL HISTORY: Z36 CONFIRM DATES. Smoker; EXAM PERFORMED: Transabdominal (TA) EXAM MEASUREMENTS: GESTATIONAL AGE / DATING Physician Established: Not yet established Dates by LMP: LMP unknown Dates by First Scan: early gestational sac/yolk sac was seen Dates by Current Scan for: ( 8 weeks/1 day) EDC: 06/18/2019 MATERNAL ANATOMY Uterus: 7.7 x 7.9 x 6.2cm Right Ovary: 2.7 x 1.7 x 1.8cm Left Ovary: not seen Post CDS: very small amount of free fluid in cul de sac Presence of corpus luteal cyst: not seen Presence of subchorionic bleed: no GESTATION / SURVEY CRL: 1.7cm (8 weeks/1 day) Yolk Sac (normal less than 6mm): 3.8mm Heart Rate: 178 bpm Rhythm: Normal IUP: single Date of LMP: unknown Beta HcG (if available): NA Single, live IUP, 8 weeks/1 day, EDC: 06/18/2019, HR 178bpm. IMPRESSION: Single live intrauterine with a sonographic age of 8 weeks and 1 day and estima amada date of delivery of 06/18/2019. Heart rate is noted to be upper limits of normal.
== END | disposition home or self-care (01) ==
LOC: RADUSWWP 12:29
PROVIDERS: ATTEND Obstetrics & Gynecology
DX: Z34.91 Encounter for supervision of normal pregnancy, unspecified, first trimester (principal)
CPT/HCPCS: 76801

== ENCOUNTER 2018-11-27 10:03 | Emergency (ER) | payer OTHER ==
[2018-11-27 11:06] VITALS: TEMP 98.7
[2018-11-27] MEDS ORDERED: METOCLOPRAMIDE 5 MG/ML 2 ML VIAL IVP STA (11:21)
[2018-11-27] MEDS ORDERED: diphenhydrAMINE 50 MG/ML 1 ML VIAL IVP STA (11:21)
[2018-11-27] MEDS ORDERED: SODIUM CHLORIDE 0.9% 1,000 ML IV STA (11:21)
--- NOTE | 2018-11-27 11:24 | ED ---
General Adult HPI - General Chief complaint: Nausea/Vomiting/Diarrhea Stated complaint: congestion & vomiting/12 wks preg Time Seen by Provider: 11/27/18 11:08 Source: patient, family, RN notes reviewed Mode of arrival: ambulatory Limitations: no limitations - History of Present Illness Initial comments: 23-year-old female with a past medical history of asthma presents to the emergency department for a chief complaint of cough as well as nausea vomiting. Patient is currently 12 weeks . States she has had nausea vomiting for the past 2 days. States she has not been able to keep down any fluids for the past 2 days. Denies any abdominal pain or cramping. Denies any vaginal discharge or vaginal bleeding. States she also has a cough and congestion. States she is coughing up mucus. Denies shortness of breath or chest pain.Patient has no other complaints at this time including shortness of breath, chest pain, abdominal pain, headache, or visual changes. - Related Data Home Medications Medication Instructions Recorded Confirmed Stw-Tsbp-Zgtew Acid 1 cap PO HS 04/16/18 04/16/18 [-U Capsule (formulary)] Allergies Allergy/AdvReac Type Severity Reaction Status Date / Time No Known Allergies Allergy Verified 11/27/18 11:02 Review of Systems ROS Statement: Those systems with pertinent positive or pertinent negative responses have been documented in the HPI. ROS Other: All systems not noted in ROS Statement are negative. Past Medical History Past Medical History: Asthma History of Any Multi-Drug Resistant Organisms: None Reported Past Surgical History: No Surgical Hx Reported Additional Past Surgical History / Comment(s): oral surgery Past Psychological History: No Psychological Hx Reported Smoking Status: Former smoker Past Alcohol Use History: None Reported Past Drug Use History: None Reported General Exam Limitations: no limitations General appearance: alert, in no apparent distress Head exam: Present: atraumatic, normocephalic, normal inspection Eye exam: Present: normal appearance, PERRL, EOMI. Absent: scleral icterus, conjunctival injection, periorbital swelling ENT exam: Present: normal exam, normal oropharynx, mucous membranes moist, TM's normal bilaterally, normal external ear exam Neck exam: Present: normal inspection, full ROM. Absent: tenderness, meningism us, lymphadenopathy Respiratory exam: Present: normal lung sounds bilaterally, other (No respiratory distress). Absent: respiratory distress, wheezes (No wheezing noted bilat erally), rales, rhonchi, stridor Cardiovascular Exam: Present: regular rate, normal rhythm, normal heart sounds. Absent: systolic murmur, diastolic murmur, rubs, gallop, clicks GI/Abdominal exam: Present: soft, normal bowel sounds. Absent: distended, tenderness, guarding, rebound, rigid Neurological exam: Present: alert Psychiatric exam: Present: normal affect, normal mood Course Vital Signs 11/27/18 11/27/18 11:02 11:23 Temperature 98.7 F Pulse Rate 105 H Respiratory 18 18 Rate Blood Pressure 108/59 O2 Sat by Pulse 99 Oximetry Medical Decision Making - Medical Decision Making 23-year-old female currently 12 weeks presents for cough as well as nausea and vomiting. Patient has had a cough for about 2 days. His it is productive in nature. Patient has also had nausea vomiting for the past 2 days and has not followed she is able to keep much down. Fluids were given. CBC that shows a mild acidosis of 12.9 which is likely secondary to vomiting. CMP is unremarkable. Urine is contaminated with 75 squamous cells. Therefore urine culture will be ordered. Patient is not having any urinary symptoms. Patient was given Reglan and reevaluated feeling much better at this time. States nausea has resolved and she is hungry and ready to go home. Patient did refuse chest x-ray however discussed returning if she develops fevers or symptoms last 7-10 days for chest x-ray at that time. Patient will be receiving routine OB care and has had a confirmed intrauterine . Not having any vaginal discharge or bleeding or any pelvic pain.I discussed this case with attending Dr. Rose who agrees with this assessment and treatment plan. - Lab Data Result diagrams: 11/27/18 11:26 11/27/18 11:26 Lab Results 11/27/18 11/27/18 11/27/18 Range/Units 11:26 11:26 11:26 WBC 12.9 H (3.8-10.6) k/uL RBC 4.28 (3.80-5.40) m/uL Hgb 12.7 (11.4-16.0) gm/dL Hct 36.1 (34.0-46.0) % MCV 84.2 (80.0-100.0) fL MCH 29.7 (25.0-35.0) pg MCHC 35.3 (31.0-37.0) g/dL RDW 12.7 (11.5-15.5) % Plt Count 254 (150-450) k/uL Neutrophils % 85 % Lymphocytes % 9 % Monocytes % 4 % Eosinophils % 1 % Basophils % 1 % Neutrophils # 11.0 H (1.3-7.7) k/uL Lymphocytes # 1.2 (1.0-4.8) k/uL Monocytes # 0.5 (0-1.0) k/uL Eosinophils # 0.1 (0-0.7) k/uL Basophils # 0.1 (0-0.2) k/uL Sodium 138 (137-145) mmol/L Potassium 3.6 (3.5-5.1) mmol/L Chloride 107 (98-107) mmol/L Carbon Dioxide 18 L (22-30) mmol/L Anion Gap 13 mmol/L BUN 7 (7-17) mg/dL Creatinine 0.53 (0.52-1.04) mg/dL Est GFR (CKD-EPI)AfAm >90 (>60 ml/min/1.73 sqM) Est GFR (CKD-EPI)NonAf >90 (>60 ml/min/1.73 sqM) Glucose 86 (74-99) mg/dL Calcium 9.6 (8.4-10.2) mg/dL Total Bilirubin 0.6 (0.2-1.3) mg/dL AST 14 (14-36) U/L ALT 10 (9-52) U/L Alkaline Phosphatase 59 (38-126) U/L Total Protein 7.5 (6.3-8.2) g/dL Albumin 4.4 (3.5-5.0) g/dL Amylase 53 (30-110) U/L Lipase 55 (23-300) U/L Urine Color Yellow Urine Appearance Turbid H (Clear) Urine pH 6.5 (5.0-8.0) Ur Specific [place] 1.031 (1.001-1.035) Urine Protein 2+ H (Negative) Urine Glucose (UA) Negative (Negative) Urine Blood Negative (Negative) Urine Nitrite Negative (Negative) Urine Bilirubin 1+ H (Negative) Urine Urobilinogen 6.0 (<2.0) mg/dL Ur Leukocyte Esterase Small H (Negative) Urine RBC 6 H (0-5) /hpf Urine WBC 13 H (0-5) /hpf Ur Squamous Epith Cells 75 H (0-4) /hpf Urine Bacteria Rare H (None) /hpf Hyaline Casts 32 H (0-2) /lpf Urine Mucus Many H (None) /hpf Disposition Clinical Impression: Nausea and vomiting during , Cough Disposition: HOME SELF-CARE Condition: Good Instructions (If sedation given, give patient instructions): Nausea and Vomiting in (ED) Additional Instructions: Please follow up with OB in 1-2 days. Please return to the emergency department if you have any worsening symptoms. Is patient prescribed a controlled substance at d/c from ED?: No Referrals: None,Stated [Primary Care Provider] - 1-2 days Time of Disposition: 13:08
[2018-11-27 11:58] LABS: Appearance,Urine Turbid (Clear); Bacteria,Urine Rare /hpf; Bilirubin,Urine 1+ (Negative); Blood,Urine Negative (Negative); Color,Urine Yellow; Glucose,Urine (UA) Negative (Negative); Hyaline Casts,Urine 32 /lpf (0-2); Ketones,Urine 4+ (Negative); Leukocyte Esterase,Urine Small (Negative); Mucus,Urine Many /hpf; Nitrite,Urine Negative (Negative); PH, Urine 6.5 (5.0-8.0); Protein,Urine 2+ (Negative); RBC,Urine 6 /hpf (0-5); Specific Gravity,Urine 1.031 (1.001-1.035); Squamous Epithelial Cell,Urine 75 /hpf (0-4); WBC,Urine 13 /hpf (0-5)
[2018-11-27 11:59] LABS: ALT 10 U/L (9-52); AST 14 U/L (14-36); African American GFR (CKD) >90 (>60 ml/min/1.73 sqM); Albumin 4.4 g/dL (3.5-5.0); Alkaline Phosphatase 59 U/L (38-126); Amylase 53 U/L (30-110); Anion Gap 13 mmol/L; Blood Urea Nitrogen 7 mg/dL (7-17); Calcium 9.6 mg/dL (8.4-10.2); Carbon Dioxide 18 mmol/L (22-30); Chloride 107 mmol/L (98-107); Glucose 86 mg/dL (74-99); Potassium 3.6 mmol/L (3.5-5.1); Sodium 138 mmol/L (137-145); Total Bilirubin 0.6 mg/dL (0.2-1.3); Total Protein 7.5 g/dL (6.3-8.2)
[2018-11-27 12:27] LABS: Basophils # (A) 0.1 k/uL (0-0.2); Basophils % (A) 1 %; Eosinophils # (A) 0.1 k/uL (0-0.7); Eosinophils % (A) 1 %; HCT 36.1 % (34.0-46.0); HGB 12.7 gm/dL (11.4-16.0); Lymphocytes # (A) 1.2 k/uL (1.0-4.8); Lymphocytes % (A) 9 %; MCH 29.7 pg (25.0-35.0); MCHC 35.3 g/dL (31.0-37.0); MCV 84.2 fL (80.0-100.0); Mean Platelet Volume 7.7; Monocytes # (A) 0.5 k/uL (0-1.0); Monocytes % (A) 4 %; Neutrophils % (A) 85 %; Platelet Count 254 k/uL (150-450); RBC 4.28 m/uL (3.80-5.40); RDW 12.7 % (11.5-15.5); WBC 12.9 k/uL (3.8-10.6)
[2018-11-27 13:19] VITALS: BP 110/64; PULSE 88; RESP 16
== END 2018-11-27 13:11 | disposition home or self-care (01) ==
LOC: EC 10:03
DX: O21.9 Vomiting of pregnancy, unspecified (principal); O99.89 Other specified diseases and conditions complicating pregnancy, childbirth and the puerperium; R05 Cough; R09.89 Other specified symptoms and signs involving the circulatory and respiratory systems; O99.281 Endocrine, nutritional and metabolic diseases complicating pregnancy, first trimester; E87.2 Acidosis; Z87.891 Personal history of nicotine dependence; Z87.09 Personal history of other diseases of the respiratory system; Z3A.12 12 weeks gestation of pregnancy; Z53.20 Procedure and treatment not carried out because of patient's decision for unspecified reasons
CPT/HCPCS: 36415; 80053; 82150; 83690; 85025; 81001; 99284; 96374; 96375; 96361; J1200; J2765

== ENCOUNTER 2019-04-05 10:50 | Outpatient (CLI) | payer OTHER ==
[2019-04-05 13:11] VITALS: BP 137/80; PULSE 126; RESP 20; TEMP 97.9
--- NOTE | 2019-04-05 21:20 | P.MSEPDOC ---
Presenting Problems - Arrival Data Date of Arrival on Unit: 04/05/19 Time of Arrival on Unit: 10:50 Mode of Transport: Wheelchair - Complaint OB-Reason for Admission/Chief Complaint: Pain Comment: pt came up from ER with abd cramping, has resp issues, congestion, chills and n/v Medical History - Information : 2 Para: 0 Term: 0 : 0 Abortions: Spontaneous or Elective: 0 Number of Living Children: 0 - Gestational Age Gestational Age by WESLEY (wks/days): 30 Weeks and 1 Days Review of Systems - Review of Systems Constitutional: No problems Breast: No problems ENT: No problems Cardiovascular: No problems Respiratory: No problems Gastrointestinal: No problems Genitourinary: No problems Musculoskeletal: No problems Neurological: No problems Skin: No problems Vital Signs - Temperature Temperature: 97.9 F Temperature Source: Temporal Artery Scan - Pulse Right Brachial Pulse Rate: 126 Pulse Assessment Method: Automatic Cuff - Respirations Respiratory Rate: 20 Oxygen Delivery Method: Room Air O2 Sat by Pulse Oximetry: 97 - Blood Pressure Right Arm Blood Pressure: 137/80 Blood Pressure Mean: 99 Blood Pressure Source: Automatic Cuff Medical Screen Scoring (Pre) - Cervical Exam Dilation: Exam Deferred Effacement: Exam Deferred Membranes: Intact - Uterine Contractions Frequency: N/A - Maternal Vital Signs Maternal Temperature: N/A Maternal Blood Pressure: N/A Signs of Preeclampsia: N/A Maternal Respirations: N/A - Maternal Trauma Maternal Trauma: N/A - Assessment - Baby A Baseline FHR: 145 Heart Rate - NICHD Category: Category I (Normal) = 0 NST: Reactive Position: N/A Station: N/A - Total Score - Baby A Total Score - Baby A: 0 - Total Score - Baby B Total Score - Baby B: 0 - Total Score - Baby C Total Score - Baby C: 0 - Level of Risk - Baby A Level of Risk - Baby A: Low (0-5) - Level of Risk - Baby B Level of Risk - Baby B: Low (0-5) - Level of Risk - Baby C Level of Risk - Baby C: Low (0-5) Physician Notification (Pre) - Physician Notified Physician Notified Date: 04/05/19 Physician Notified Time: 12:10 - Notification Comment Comment: pt left AMA, she wanted" to go home and sleep and eat" cbc and flu swab had been ordered Disposition - Disposition OB Disposition: Discharge to home Discharge Date: 04/05/19 Discharge Time: 12:40 I agree with the RN Medical Screening Exam: Yes Physician's MSE Comment: Patient presented to family complaining of flu-like symptoms. A CBC and flu swab were ordered but the patient left before they could be collected. We did warn the patient if she does have the flu she could get very sick, she could suffer and the baby could suffer and up to and including . Patient still signed the form and left AGAINST MEDICAL ADVICE. Risk & Benefit of care provided described in d/c instruction: Yes Diagnosis: OTHER VOMITING COMPLICATING
== END 2019-04-05 12:40 | disposition left against medical advice (07) ==
LOC: FBPOP 10:50
PROVIDERS: ATTEND Obstetrics & Gynecology
DX: Z53.9 Procedure and treatment not carried out, unspecified reason (principal)

== ENCOUNTER 2019-05-03 14:57 | Outpatient (CLI) | payer OTHER ==
[2019-05-03 15:52] VITALS: BP 134/79; PULSE 108; RESP 16; TEMP 98.2
--- NOTE | 2019-05-05 10:09 | P.MSEPDOC ---
Presenting Problems - Arrival Data Date of Arrival on Unit: 05/03/19 Time of Arrival on Unit: 14:58 Mode of Transport: Ambulatory - Complaint OB-Reason for Admission/Chief Complaint: Rule Out PROM Comment: pt sent from dr uhdson office after complaint of leaking since last night. Medical History - Information : 1 Para: 0 Number of Living Children: 0 - Gestational Age Gestational Age by WESLEY (wks/days): 33 Weeks and 3 Days Review of Systems - Review of Systems Constitutional: No problems Breast: No problems ENT: No problems Cardiovascular: No problems Respiratory: No problems Gastrointestinal: No problems Genitourinary: No problems Musculoskeletal: No problems Neurological: No problems Skin: No problems Vital Signs - Temperature Temperature: 98.2 F Temperature Source: Temporal Artery Scan - Pulse Right Sitting Brachial Pulse Rate: 108 Pulse Assessment Method: Pulse Oximetry - Respirations Respiratory Rate: 16 Oxygen Delivery Method: Room Air O2 Sat by Pulse Oximetry: 100 - Blood Pressure Right Arm Sitting Blood Pressure: 134/79 Blood Pressure Mean: 97 Blood Pressure Source: Automatic Cuff Medical Screen Scoring (Pre) - Cervical Exam Dilation: 0 cm = 0 Effacement: Exam Deferred Membranes: Intact - Uterine Contractions Frequency: N/A Duration: N/A Intensity: N/A - Maternal Vital Signs Maternal Temperature: N/A Maternal Blood Pressure: N/A Signs of Preeclampsia: N/A Maternal Respirations: N/A - Maternal Trauma Maternal Trauma: N/A - Assessment - Baby A Baseline FHR: 135 Heart Rate - NICHD Category: Category I (Normal) = 0 NST: Reactive Position: N/A Station: N/A - Total Score - Baby A Total Score - Baby A: 0 - Total Score - Baby B Total Score - Baby B: 0 - Total Score - Baby C Total Score - Baby C: 0 - Level of Risk - Baby A Level of Risk - Baby A: Low (0-5) - Level of Risk - Baby B Level of Risk - Baby B: Low (0-5) - Level of Risk - Baby C Level of Risk - Baby C: Low (0-5) Physician Notification (Pre) - Physician Notified Physician Notified Date: 05/03/19 Physician Notified Time: 15:35 New Order Received: Yes (discharge home) Disposition - Disposition OB Disposition: Discharge to home Discharge Date: 05/03/19 Discharge Time: 15:40 I agree with the RN Medical Screening Exam: Yes Risk & Benefit of care provided described in d/c instruction: Yes Diagnosis: FALSE LABOR AT OR AFTER 37 COMPLETED WEEKS OF GESTATION
== END 2019-05-03 15:40 | disposition home or self-care (01) ==
LOC: FBPOP 14:57
PROVIDERS: ATTEND Obstetrics & Gynecology
DX: O47.1 False labor at or after 37 completed weeks of gestation (principal); Z3A.33 33 weeks gestation of pregnancy
CPT/HCPCS: 59025; 84112; G0463; 99213

== ENCOUNTER 2019-05-30 18:35 | Outpatient (CLI) | payer OTHER ==
[2019-05-30 21:08] VITALS: BP 125/70; PULSE 105; RESP 16; TEMP 97.6
--- NOTE | 2019-07-11 08:52 | P.MSEPDOC ---
Presenting Problems - Arrival Data Date of Arrival on Unit: 05/30/19 Time of Arrival on Unit: 18:35 Mode of Transport: Ambulatory - Complaint OB-Reason for Admission/Chief Complaint: Possible Onset of Labor Comment: Pt complains of contractions all day about 7-10 mins apart Medical History - Information : 2 Para: 0 Term: 0 : 0 Abortions: Spontaneous or Elective: 1 Number of Living Children: 0 - Gestational Age Gestational Age by WESLEY (wks/days): 38 Weeks and 0 Days Review of Systems - Review of Systems Constitutional: No problems Breast: No problems ENT: No problems Cardiovascular: No problems Respiratory: No problems Gastrointestinal: No problems Genitourinary: No problems Musculoskeletal: No problems Neurological: No problems Skin: No problems Vital Signs - Temperature Temperature: 97.6 F Temperature Source: Temporal Artery Scan - Pulse Pulse Oximetery Pulse Rate: 105 Pulse Assessment Method: Pulse Oximetry - Respirations Respiratory Rate: 16 Oxygen Delivery Method: Room Air - Blood Pressure Right Arm Blood Pressure: 125/70 Blood Pressure Mean: 88 Blood Pressure Source: Automatic Cuff Medical Screen Scoring (Pre) - Cervical Exam Dilation: 1-3 cm = 1 Effacement: More than 50% = 2 Membranes: Intact - Uterine Contractions Frequency: > 5 minutes apart = 1 Duration: > 40 seconds = 2 Intensity: N/A - Maternal Vital Signs Maternal Temperature: N/A Maternal Blood Pressure: N/A Signs of Preeclampsia: N/A Maternal Respirations: N/A - Assessment - Baby A Baseline FHR: 135 Heart Rate - NICHD Category: Category I (Normal) = 0 NST: Reactive Position: N/A Station: N/A - Total Score - Baby A Total Score - Baby A: 6 - Total Score - Baby B Total Score - Baby B: 6 - Total Score - Baby C Total Score - Baby C: 6 - Level of Risk - Baby A Level of Risk - Baby A: Medium (6-9) - Level of Risk - Baby B Level of Risk - Baby B: Medium (6-9) - Level of Risk - Baby C Level of Risk - Baby C: Medium (6-9) Physician Notification (Pre) - Physician Notified Physician Notified Date: 05/30/19 Physician Notified Time: 20:20 New Order Received: Yes - Notification Comment Comment: Dr. Orlando called and report given on maternal and status. Pt complains. of contractions. Contractions are 6-9 mins apart. Sterile vag exam 3.5/70%/-2, no change. in 1 hour. Vital signs WNL and NST reactive. Orders to discharge home Disposition - Disposition OB Disposition: Discharge to home Discharge Date: 05/30/19 Discharge Time: 20:25 I agree with the RN Medical Screening Exam: Yes Risk & Benefit of care provided described in d/c instruction: Yes Diagnosis: FALSE LABOR AT OR AFTER 37 COMPLETED WEEKS OF GESTATION
== END 2019-05-30 20:25 | disposition home or self-care (01) ==
LOC: FBPOP 18:35
PROVIDERS: ATTEND Obstetrics & Gynecology
DX: O47.1 False labor at or after 37 completed weeks of gestation (principal); Z3A.38 38 weeks gestation of pregnancy
CPT/HCPCS: 59025; G0463; 99213

== ENCOUNTER 2019-06-01 15:35 | Outpatient (CLI) | payer SELFPAY ==
[2019-06-01 17:18] VITALS: BP 130/77; PULSE 119; RESP 18; TEMP 98.2
--- NOTE | 2019-06-02 07:17 | P.MSEPDOC ---
Presenting Problems - Arrival Data Date of Arrival on Unit: 06/01/19 Time of Arrival on Unit: 15:40 Mode of Transport: Ambulatory - Complaint OB-Reason for Admission/Chief Complaint: Rule Out SROM Medical History - Information : 2 Para: 0 Term: 0 : 0 Abortions: Spontaneous or Elective: 1 Number of Living Children: 0 - Gestational Age Gestational Age by WESLEY (wks/days): -66 Weeks and 0 Days - History Comment: pt has grade III placenta Review of Systems - Review of Systems Constitutional: No problems Breast: No problems ENT: No problems Cardiovascular: No problems Respiratory: No problems Gastrointestinal: No problems Genitourinary: No problems Musculoskeletal: No problems Neurological: No problems Skin: No problems Vital Signs - Temperature Temperature: 98.2 F Temperature Source: Temporal Artery Scan - Pulse Pulse Oximetery Pulse Rate: 119 Pulse Assessment Method: Pulse Oximetry - Respirations Respiratory Rate: 18 Oxygen Delivery Method: Room Air O2 Sat by Pulse Oximetry: 98 - Blood Pressure Right Arm Sitting Blood Pressure: 130/77 Blood Pressure Mean: 94 Medical Screen Scoring (Pre) - Cervical Exam Dilation: 4-7 cm = 2 Membranes: Intact - Uterine Contractions Frequency: > 5 minutes apart = 1 Duration: N/A Intensity: N/A - Maternal Vital Signs Maternal Temperature: N/A Maternal Blood Pressure: N/A Signs of Preeclampsia: N/A Maternal Respirations: N/A - Maternal Trauma Maternal Trauma: N/A - Assessment - Baby A Baseline FHR: 135 Heart Rate - NICHD Category: Category I (Normal) = 0 NST: Reactive Position: N/A Station: N/A - Total Score - Baby A Total Score - Baby A: 3 - Total Score - Baby B Total Score - Baby B: 3 - Total Score - Baby C Total Score - Baby C: 3 - Level of Risk - Baby A Level of Risk - Baby A: Low (0-5) - Level of Risk - Baby B Level of Risk - Baby B: Low (0-5) - Level of Risk - Baby C Level of Risk - Baby C: Low (0-5) Physician Notification (Pre) - Physician Notified Physician Notified Date: 06/01/19 Physician Notified Time: 16:05 New Order Received: Yes - Notification Comment Comment: reported neg amnisure, cervical exam is 4cm which is the same as Dr Gudino's exam on , few contx noted, , gest age 38 2/, pt has grade III placenta, and reactive NST to Dr Chino. orders received to dc pt and have her f/u with Dr Gudino on 06/06/2019 in the office Disposition - Disposition OB Disposition: Physician follow up in office, Triage, Discharge to home, Written follow up instructions reviewed Discharge Date: 06/01/19 Discharge Time: 16:19 I agree with the RN Medical Screening Exam: Yes Risk & Benefit of care provided described in d/c instruction: Yes Diagnosis: FALSE LABOR AT OR AFTER 37 COMPLETED WEEKS OF GESTATION
== END 2019-06-01 16:19 | disposition home or self-care (01) ==
LOC: FBPOP 15:35
PROVIDERS: ATTEND Obstetrics & Gynecology
DX: O47.1 False labor at or after 37 completed weeks of gestation (principal); Z3A.49 Greater than 42 weeks gestation of pregnancy
CPT/HCPCS: 59025; 99213

== ENCOUNTER 2019-06-12 06:00 | Inpatient (IN) | payer OTHER ==
[2019-06-12] MEDS ORDERED: CARBOPROST TROMETHAMINE 250 MCG/ML 1 ML AMP IM PRN (06:55)
[2019-06-12] MEDS ORDERED: LIDOCAINE 0.5% (PF) 5 MG/ML (50 ML SDV) SQ PRN (06:55)
[2019-06-12] MEDS ORDERED: METHYLERGONOVINE 0.2 MG/ML 1 ML AMP IM PRN (06:55)
[2019-06-12] MEDS ORDERED: TERBUTALINE 1 MG/ML VIAL SQ PRN (06:55)
[2019-06-12] MEDS ORDERED: OXYTOCIN 10 UNIT/ML 1 ML VIAL IM PRN (06:55)
[2019-06-12] MEDS ORDERED: OXYTOCIN 30 UNITS/500 ML NS 30 UNIT in SALINE 1 500ML.BAG IV SCH (07:00)
[2019-06-12 07:10] LABS: Basophils % (A) 0 %; Eosinophils # (A) 0.2 k/uL (0-0.7); Eosinophils % (A) 1 %; HCT 35.6 % (34.0-46.0); HGB 11.7 gm/dL (11.4-16.0); Lymphocytes # (A) 3.3 k/uL (1.0-4.8); Lymphocytes % (A) 18 %; MCH 27.5 pg (25.0-35.0); MCV 83.3 fL (80.0-100.0); Mean Platelet Volume 8.1; Monocytes # (A) 0.8 k/uL (0-1.0); Monocytes % (A) 4 %; Neutrophils # (A) 13.4 k/uL (1.3-7.7); Neutrophils % (A) 75 %; Platelet Count 334 k/uL (150-450); RBC 4.27 m/uL (3.80-5.40)
[2019-06-12] MEDS: LACTATED RINGERS 1,000 ML IV SCH ×2 (07:29→09:42)
[2019-06-12] MEDS ORDERED: ROPIVACAINE 100 MG, fentaNYL (PF) 200 MCG in SODIUM CHLORIDE 0.9% 76 ML EPIDURAL ONE (10:53)
[2019-06-12] MEDS ORDERED: HYDROCORTISONE 2.5% RECTAL CREAM 30 GM TUBE RECTAL PRN (12:07)
[2019-06-12] MEDS ORDERED: SIMETHICONE 80 MG CHEWABLE PO PRN (12:07)
[2019-06-12] MEDS ORDERED: ACETAMINOPHEN TAB 325 MG TAB PO PRN (12:07)
[2019-06-12] MEDS ORDERED: HYDROcodone/APAP 5-325MG 1 EACH TAB PO PRN (12:07)
[2019-06-12] MEDS ORDERED: MEASLES-MUMPS-RUBELLA VACC/PF 12,500 UNIT/0.5 ML VIAL SQ ONE (12:07)
[2019-06-12] MEDS ORDERED: diphenhydrAMINE 50 MG CAP PO PRN (12:07)
[2019-06-12] MEDS ORDERED: LANOLIN CREAM 5 GM TUBE TOPICAL PRN (12:07)
[2019-06-12] MEDS ORDERED: diphenhydrAMINE 25 MG CAP PO PRN (12:07)
[2019-06-12] MEDS ORDERED: diphenhydrAMINE 50 MG/ML 1 ML VIAL IVP PRN ×2 (12:07)
[2019-06-12] MEDS ORDERED: BENZOCAINE/MENTHOL SPRAY 1 GM/SPRAY AEROSOL TOPICAL PRN (12:07)
[2019-06-12] MEDS ORDERED: WITCH HAZEL 1 EACH MED..PAD TOPICAL PRN (12:07)
[2019-06-12] MEDS ORDERED: ZOLPIDEM 5 MG TAB PO PRN (12:07)
--- NOTE | 2019-06-12 12:10 | P.HPOB ---
History of Present Illness H&P Date: 06/12/19 Chief Complaint: Intrauterine at term: Induction of labor: Grade 3 placenta Melonie is a 23-year-old G1 to P0 at 39 weeks gestation who is had her , complicated by a grade 3 placenta that was noted at a 32 or 33 week ultrasound. She has had twice weekly NSTs and biophysical profiles through the latter part of the all with good result. This morning she has a category 1 tracing and she was dilated to 4-1/2 cm 90% effaced -2 station when artificial rupture membranes was performed and clear fluid is noted. Plan Pitocin augmentation of labor and she expects to use an epidural for analgesia. Otherwise she is doing very well. All questions are answered for her and she understands risks and benefits of an induction of labor. Past Medical History Past Medical History: Asthma History of Any Multi-Drug Resistant Organisms: None Reported Past Surgical History: No Surgical Hx Reported Additional Past Surgical History / Comment(s): oral surgery Past Anesthesia/Blood Transfusion Reactions: No Reported Reaction Past Psychological History: No Psychological Hx Reported Smoking Status: Former smoker Past Alcohol Use History: None Reported Past Drug Use History: None Reported - Past Family History Mother Family Medical History: Blood Disorder, Thyroid Disorder Medications and Allergies Home Medications Medication Instructions Recorded Confirmed Type Azt-Biwu-Oizsc Acid 1 cap PO HS MDD 1 04/16/18 06/12/19 History [-U Capsule (formulary)] Allergies Allergy/AdvReac Type Severity Reaction Status Date / Time No Known Allergies Allergy Verified 06/12/19 06:54 Exam Osteopathic Statement: *. No significant issues noted on an osteopathic structural exam other than those noted in the History and Physical/Consult. Vital Signs Temp Pulse Resp BP Pulse Ox 06/12/19 06:53 97.3 F L 130 H 16 141/71 98 Intake and Output 06/11/19 06/12/19 06/12/19 22:59 06:59 14:59 Other: Weight 82.1 kg - OBG Physical Exam Breast: both: normal (no masses) Abdomen: bowel sounds normal, no diffuse tenderness, no bruit present, no guarding noted, no hepatomegaly, no splenomegaly, no mass Vulva: both: normal Vagina: normal moisture, no discharge Cervix: no lesion, no discharge Uterus: normal size, normal contour Adnexa: both: normal Anus/Rectum: normal perianal skin, no rectal mass, no hemorrhoids, heme negative Results Result Diagrams: 06/12/19 06:56 Abnormal Lab Results - Last 24 Hours (Table) 06/12/19 Range/Units 06:56 WBC 18.0 H (3.8-10.6) k/uL Neutrophils # 13.4 H (1.3-7.7) k/uL
--- NOTE | 2019-06-12 12:11 | P.PROBDLV ---
Vaginal Delivery Note - . Vaginal Delivery Note: Patient progressed complete and pushing with spontaneous vaginal delivery of a viable male over a secondary perineal laceration. Following delivery of the head anterior and posterior shoulders were easily delivered with gentle sideward extraction from left occiput anterior position. Once baby was fully delivered mouth nares were bulb suctioned and baby was placed on mother's abdomen where the umbilical cord was allowed to pulsate for 30 seconds prior to clamping and cutting. Once this was completed nursery personnel was present and assumed care. Placenta was then delivered intact and Pitocin was added to the IV. Secondary perineal laceration was then repaired with 3-0 Vicryl following 1% Xylocaine for analgesia. scores were 9 and 9 at one and 5 minutes respectively and the weight was 6 lbs. 14 oz. Both mother and baby are stable following delivery.
[2019-06-12] MEDS ORDERED: OXYTOCIN 20 UNITS/1000 ML NS 1,000 ML IV SCH (12:15)
[2019-06-12] MEDS: SENNOSIDES-DOCUSATE SODIUM 1 EACH TAB PO SCH (23:41)
[2019-06-13] MEDS: IBUPROFEN 600 MG TAB PO PRN ×2 (04:24→09:15)
[2019-06-13] MEDS: SENNOSIDES-DOCUSATE SODIUM 1 EACH TAB PO SCH (08:00)
[2019-06-13 08:45] VITALS: BP 117/72; PULSE 83; RESP 20; TEMP 97.7
--- NOTE | 2019-06-13 11:00 | P.DS ---
Providers Date of admission: 06/12/19 06:40 Expected date of discharge: 06/13/19 Attending physician: Hal Gudino Primary care physician: Stated None Hospital Course: Patient is doing very well day 1. She is involuting, voiding tolerating her diet. She voices no complaints. Vital signs are stable and afebrile. Heart regular, lungs clear, extremities without pain. Abdomen soft uterus is firm and lochia is reported light. Assessment day 1. Plan discharged home follow up with me in 6 weeks. Prescription for Motrin and [place] was provided and all questions were answered. She is stable for discharge this time. Patient Condition at Discharge: Good Plan - Discharge Summary New Discharge Prescriptions: New Ibuprofen [Motrin] 600 mg PO Q6HR PRN #30 tab PRN Reason: Pain HYDROcodone/APAP 5-325MG [[place] 5-325] 1 tab PO Q4HR PRN #30 tab PRN Reason: Pain No Action Tgj-[id number]-Onjnt Acid [-U Capsule (formulary)] 1 cap PO HS MDD 1 Discharge Medication List Tjn-Fbdz-Vftqd Acid [-U Capsule (formulary)] 1 cap PO HS MDD 1 04/16/18 [History] HYDROcodone/APAP 5-325MG [[place] 5-325] 1 tab PO Q4HR PRN #30 tab 06/13/19 [Rx] Ibuprofen [Motrin] 600 mg PO Q6HR PRN #30 tab 06/13/19 [Rx] Follow up Appointment(s)/Referral(s): Hal Gudino DO [Doctor of Osteopathic Medicine] - 6 Weeks Activity/Diet/Wound Care/Special Instructions: No heavy lifting, limit stairs and driving, and pelvic rest. If any high temperatures, heavy bleeding, or severe pain call my office Discharge Disposition: HOME SELF-CARE
== END 2019-06-13 13:45 | disposition home or self-care (01) | DRG 807 ==
LOC: 4FBP 06:40
PROVIDERS: ADMIT Obstetrics & Gynecology; ATTEND Obstetrics & Gynecology
PROC: 0KQM0ZZ Repair Perineum Muscle, Open Approach (ICD-10-PCS; principal; 2019-06-12)
PROC: 3E0R3BZ Introduction of Anesthetic Agent into Spinal Canal, Percutaneous Approach (ICD-10-PCS; principal; 2019-06-12)
PROC: 00HU33Z Insertion of Infusion Device into Spinal Canal, Percutaneous Approach (ICD-10-PCS; principal; 2019-06-12)
PROC: 10E0XZZ Delivery of Products of Conception, External Approach (ICD-10-PCS; principal; 2019-06-12)
DX: O70.1 Second degree perineal laceration during delivery (principal); Z37.0 Single live birth; Z3A.39 39 weeks gestation of pregnancy; Z87.891 Personal history of nicotine dependence; Z87.09 Personal history of other diseases of the respiratory system
CPT/HCPCS: 85025; 86850; 86900; 86901; 88307

== ENCOUNTER 2021-12-26 22:41 | Emergency (ER) | payer OTHER ==
[2021-12-27] MEDS ORDERED: PROPARACAINE 0.5% OPHTH DROPS 15 ML BTL LEFT EYE STA (00:30)
--- NOTE | 2021-12-27 00:30 | ED ---
Eye Problem HPI - General Chief complaint: Eye Problems Stated complaint: Left eye pain Time Seen by Provider: 12/27/21 00:28 Source: patient, RN notes reviewed, old records reviewed Mode of arrival: ambulatory Limitations: no limitations - History of Present Illness Initial comments: This is a 26-year-old female to the emergency department for evaluation patient Radha for evaluation of left eye pain severe left eye redness and drainage. Patient was scratched by her 2-year-old child when she was holding him earlier today. Pain got worse tonight. Pain is severe severe left eye pain MD chief complaint: eye pain, eye redness, eye injury -: hour(s) Onset Description: gradual Location: left eye Place: home If Injury: none Eye Symptoms: burning, redness Severity: moderate Severity scale (1-10): 4 If Pain, Quality: sharp, burning Consistency: constant Context: trauma Associated Symptoms: none Treatments Prior to Arrival: none - Related Data Home Medications Medication Instructions Recorded Confirmed Ljp-Dccl-Vozsf Acid 1 cap PO HS MDD 1 04/16/18 06/12/19 [-U Capsule (formulary)] Previous Rx's Medication Instructions Recorded HYDROcodone/APAP 5-325MG [[place] 1 tab PO Q4HR PRN #30 tab 06/13/19 5-325] Ibuprofen [Motrin] 600 mg PO Q6HR PRN #30 tab 06/13/19 Allergies Allergy/AdvReac Type Severity Reaction Status Date / Time No Known Allergies Allergy Verified 12/26/21 22:49 Review of Systems ROS Statement: Those systems with pertinent positive or pertinent negative responses have been documented in the HPI. ROS Other: All systems not noted in ROS Statement are negative. Past Medical History Past Medical History: Asthma History of Any Multi-Drug Resistant Organisms: None Reported Past Surgical History: No Surgical Hx Reported Additional Past Surgical History / Comment(s): oral surgery Past Anesthesia/Blood Transfusion Reactions: No Reported Reaction Past Psychological History: Anxiety, Depression Smoking Status: Current every day smoker Past Alcohol Use History: Rare Past Drug Use History: None Reported - Past Family History Mother Family Medical History: Blood Disorder, Thyroid Disorder General Exam - General Exam Comments Initial Comments: Left eye Tetracaine Floor seen Pain resolved Corneal abrasion at 9 o'clock position Limitations: no limitations General appearance: alert, in no apparent distress Head exam: Present: atraumatic, normocephalic, normal inspection Eye exam: Present: normal appearance, PERRL, EOMI, conjunctival injection (Left eye). Absent: scleral icterus, periorbital swelling ENT exam: Present: normal exam, mucous membranes moist Neck exam: Present: normal inspection. Absent: tenderness, meningismus, lymphadenopathy Respiratory exam: Present: normal lung sounds bilaterally. Absent: respiratory distress, wheezes, rales, rhonchi, stridor Cardiovascular Exam: Present: regular rate, normal rhythm, normal heart sounds. Absent: systolic murmur, diastolic murmur, rubs, gallop, clicks GI/Abdominal exam: Present: soft, normal bowel sounds. Absent: distended, tenderness, guarding, rebound, rigid Extremities exam: Present: normal inspection, full ROM, normal capillary refill. Absent: tenderness, pedal edema, joint swelling, calf tenderness Back exam: Present: normal inspection Neurological exam: Present: alert, oriented X3, CN II-XII intact Psychiatric exam: Present: normal affect, normal mood Skin exam: Present: warm, dry, intact, normal color. Absent: rash Course Vital Signs 12/26/21 12/27/21 22:47 00:31 Temperature 98.2 F 97.8 F Pulse Rate 87 70 Respiratory 18 16 Rate Blood Pressure 112/76 128/79 O2 Sat by Pulse 99 100 Oximetry - Reevaluation(s) Reevaluation #1: 12/27/21 01:10 Medical record is reviewed Reevaluation #2: 12/27/21 01:10 Patient symptoms are improved Reevaluation #3: 12/27/21 01:10 Patient informed results and questions answered Procedures - Forgein Body Removal Eye Site: Left Anesthetic Used: Proparacaine Eye Exam Technique: John Lamp Foreign Body Suspected: Other (No foreign body just corneal abrasion) Remaining Debris: No Patient Tolerated: well Medical Decision Making - Medical Decision Making 26 female whose young baby scratched her left eye. Patient does have corneal abrasion 9 o'clock position left eye. Patient placed on antibiotics and can be discharged home Disposition Clinical Impression: Left corneal abrasion Disposition: HOME SELF-CARE Condition: Good Instructions (If sedation given, give patient instructions): Corneal Abrasion (ED) Is patient prescribed a controlled substance at d/c from ED?: No Referrals: None,Stated [Primary Care Provider] - 1-2 days Time of Disposition: 01:10
[2021-12-27 00:32] VITALS: RESP 16; TEMP 97.8
[2021-12-27] MEDS ORDERED: FLUORESCEIN STRIPS 1 MG STRIP LEFT EYE ONE (00:48)
[2021-12-27] MEDS ORDERED: TOBRAMYCIN 0.3% OPHTH DROPS 5 ML BTL LEFT EYE STA (01:06)
[2021-12-27 01:25] VITALS: BP 122/81; PULSE 76
== END 2021-12-27 01:24 | disposition home or self-care (01) ==
LOC: EC 22:41
DX: S05.02XA Injury of conjunctiva and corneal abrasion without foreign body, left eye, initial encounter (principal); J45.909 Unspecified asthma, uncomplicated; F41.9 Anxiety disorder, unspecified; F32.A Depression, unspecified; F17.200 Nicotine dependence, unspecified, uncomplicated; Z79.899 Other long term (current) drug therapy; W50.4XXA Accidental scratch by another person, initial encounter
CPT/HCPCS: 99283